=== PATIENT | female | born 1990 ===

== ENCOUNTER 2023-10-16 15:35 | Inpatient (IN) | payer BC ==
[2023-10-16] MEDS ORDERED: ELECTROLYTE-148 SOLN 1,000 ML IV SCH ×2 (17:15→20:30)
[2023-10-16 17:25] VITALS: BMI 25.8
[2023-10-16] MEDS ORDERED: AMPICILLIN SODIUM 2 GM VIAL IVPB ONE (17:30)
[2023-10-16] MEDS ORDERED: AMPICILLIN SODIUM 2 GM VIAL ONE (17:35)
[2023-10-16 18:51] LABS: BASO % 0.3 % (0-2.0); EOS % 1.6 % (0-4.5); HEMATOCRIT 37.7 % (32.4-45.2); HEMOGLOBIN 12.8 GM/dL (10.7-15.3); LYMPH % 8.9 % (8-40); MCH 29.8 pg (25.7-33.7); MCHC 33.9 g/dl (32.0-36.0); MEAN CELL VOLUME 87.9 fl (80-96); MEAN PLT VOLUME 8.6 fl (7.5-11.1); MONO % 9.3 % (3.8-10.2); NEUT % 79.9 % (42.8-82.8); PLATELET COUNT 243 10^3/uL (134-434); RBC 4.29 M/mm3 (3.60-5.2); RDW 13.8 % (11.6-15.6)
[2023-10-16 18:58] LABS: INR 0.92 (0.83-1.09); PROTHROMBIN TIME (PATIENT) 10.7 SEC (9.7-13.0)
[2023-10-16 19:01] LABS: ACTIVATED PTT 24.4 SECONDS (25.2-36.5)
[2023-10-16 19:02] LABS: COCAINE, UR NEGATIVE (NEGATIVE); METHADONE, UR NEGATIVE (NEGATIVE); OPIATES, URI NEGATIVE (NEGATIVE); PHENCYCLIDINE,URINE NEGATIVE (NEGATIVE); URINE AMPHETAMINES NEGATIVE (NEGATIVE); URINE BARBITURATES NEGATIVE (NEGATIVE); URINE BENZODIAZEPINES NEGATIVE (NEGATIVE)
[2023-10-16] MEDS ORDERED: FENTANYL/BUPIVACAINE/NS/PF - PCEA - 50 ML DISP.SYRIN EP ONE (19:07)
[2023-10-16 19:09] LABS: POTASSIUM 3.7 mmol/L (3.5-5.1)
[2023-10-16 19:11] LABS: BLOOD UREA NITROGEN 11.9 mg/dL (7-18)
[2023-10-16 19:14] LABS: CREATININE 0.5 mg/dL (0.55-1.3)
[2023-10-16 19:22] LABS: ANISOCYTOSIS 0; MACROCYTOSIS 0; OVALOCYTE 1+; TEAR DROP CELLS 1+
[2023-10-16] MEDS ORDERED: NALOXONE HCL 0.4 MG/ML VIAL IVPUSH PRN (19:28)
[2023-10-16] MEDS ORDERED: FENTANYL CITRATE/PF 50 MCG/ML VIAL ONE ×2 (19:30→20:36)
[2023-10-16] MEDS ORDERED: FENTANYL/BUPIVACAINE/NS/PF - PCEA - 50 ML DISP.SYRIN EP SCH (19:30)
[2023-10-16] MEDS ORDERED: BUPIVACAINE HCL/PF 0.25% (2.5MG/ML) 10 ML VIAL ONE (19:30)
[2023-10-16 20:09] LABS: HIV INTERPRETATION NEGATIVE (NEGATIVE)
[2023-10-16] MEDS ORDERED: OXYTOCIN 30 UNITS in 0.9% NS 30 UNIT/500 ML INFUS.BAG IVPB ONE (20:24)
[2023-10-16] MEDS ORDERED: OXYTOCIN 30 UNITS in 0.9% NS 30 UNIT/500 ML INFUS.BAG IVPB SCH (20:30)
[2023-10-16] MEDS ORDERED: LIDOCAINE HCL/EPINEPHRINE/PF 10 ML VIAL ONE (20:37)
[2023-10-16] MEDS ORDERED: ACETAMINOPHEN 1000 MG/100 ML BAG IVPB PRN (21:20)
[2023-10-16] MEDS ORDERED: AMPICILLIN SODIUM 1 GM VIAL ONE (21:22)
[2023-10-16] MEDS ORDERED: ACETAMINOPHEN INJECTION 100 ML IVPB ONE (21:23)
[2023-10-16] MEDS: AMPICILLIN - 1 GM in SODIUM CHLORIDE 100 ML IVPB SCH (21:45)
[2023-10-16] MEDS ORDERED: OXYTOCIN 20 UNITS in 0.9% NS 20 UNIT/1,000 ML INFUS.BAG IV ONE (23:11)
[2023-10-16] MEDS ORDERED: LIDOCAINE HCL 1% PRESERVATIVE FREE - 30ML VIAL ONE (23:11)
[2023-10-17] MEDS ORDERED: OXYTOCIN 10 UNITS/ML VIAL ONE (02:01)
[2023-10-17] MEDS ORDERED: ACETAMINOPHEN 325 MG TABLET (FP) PO PRN (02:29)
[2023-10-17] MEDS ORDERED: oxyCODONE HCL 5 MG TABLET PO PRN (02:29)
[2023-10-17] MEDS ORDERED: METHYLERGONOVINE MALEATE 0.2 MG/1 ML AMP IM PRN (02:29)
[2023-10-17] MEDS ORDERED: BISACODYL 10 MG SUPP.RECT RC PRN (02:29)
[2023-10-17] MEDS ORDERED: BENZOCAINE 28 GM HEMORRHOIDAL OINTMENT TP PRN (02:29)
[2023-10-17] MEDS ORDERED: OXYTOCIN 20 UNITS in 0.9% NS 20 UNIT/1,000 ML INFUS.BAG IV SCH (02:30)
[2023-10-17] MEDS: AMPICILLIN - 1 GM in SODIUM CHLORIDE 100 ML IVPB SCH ×3 (03:31→10:06)
[2023-10-17] MEDS: IBUPROFEN 600 MG TABLET (FP) PO PRN ×2 (04:10→20:00)
[2023-10-17] MEDS: BENZOCAINE 20% 57 GM BOTTLE TP PRN (04:11)
[2023-10-17] MEDS: WITCH HAZEL 50% (TUCKS) 40 PAD/JAR PAD TP PRN (04:12)
[2023-10-17] MEDS: PRENATAL VITAMINS W/ FOLIC ACID TABLET (FP) PO SCH (10:08)
[2023-10-17] MEDS: FERROUS SO4 325 MG TABLET (FP) PO SCH (10:08)
[2023-10-18] MEDS: IBUPROFEN 600 MG TABLET (FP) PO PRN ×3 (04:17→19:51)
[2023-10-18 07:31] LABS: HEMATOCRIT 32.7 % (32.4-45.2); HEMOGLOBIN 10.6 GM/dL (10.7-15.3); MCH 29.2 pg (25.7-33.7); MCHC 32.5 g/dl (32.0-36.0); MEAN CELL VOLUME 89.8 fl (80-96); MEAN PLT VOLUME 8.4 fl (7.5-11.1); PLATELET COUNT 219 10^3/uL (134-434); RBC 3.64 M/mm3 (3.60-5.2); RDW 13.7 % (11.6-15.6)
[2023-10-18 08:57] LABS: ANISOCYTOSIS 0; MACROCYTOSIS 0
[2023-10-18 09:15] VITALS: RESP 18
[2023-10-18] MEDS: PRENATAL VITAMINS W/ FOLIC ACID TABLET (FP) PO SCH (09:28)
[2023-10-18] MEDS: FERROUS SO4 325 MG TABLET (FP) PO SCH (09:28)
[2023-10-18] MEDS: BENZOCAINE 20% 57 GM BOTTLE TP PRN (21:13)
[2023-10-18] MEDS: WITCH HAZEL 50% (TUCKS) 40 PAD/JAR PAD TP PRN (21:14)
[2023-10-18] MEDS ORDERED: SENNOSIDES/DOCUSATE COMBO (SENNA PLUS) TABLET (UD) PO PRN (22:00)
[2023-10-19] MEDS: IBUPROFEN 600 MG TABLET (FP) PO PRN (09:04)
[2023-10-19] MEDS: PRENATAL VITAMINS W/ FOLIC ACID TABLET (FP) PO SCH (09:05)
[2023-10-19] MEDS: FERROUS SO4 325 MG TABLET (FP) PO SCH (09:05)
[2023-10-19 11:04] VITALS: BP 103/73; PULSE 74; TEMP 97.9
== END 2023-10-19 12:00 | disposition home or self-care (01) | DRG 807 ==
LOC: JDEL 15:35 → JLDR 16:35 → J3W 10-17 03:20
PROVIDERS: ADMIT Obstetrics & Gynecology; ATTEND Obstetrics & Gynecology
PROC: 10E0XZZ Delivery of Products of Conception, External Approach (ICD-10-PCS; principal; 2023-10-17)
DX: O80 Encounter for full-term uncomplicated delivery (principal); Z37.0 Single live birth; Z3A.37 37 weeks gestation of pregnancy
CPT/HCPCS: 36415; 59025; 80048; 80307; 85025; 85610; 85730; 86780; 86850; 86900; 86901; 87389